=== PATIENT | female | born 1965 | race Hispanic/Latino ===

== ENCOUNTER 2018-08-30 20:59 | Emergency (ER) | payer MEDICARE ==
--- NOTE | 2018-08-30 21:15 | Emergency Department Report ---
Blank Doc - Documentation Documentation: 52 y o female presents to ed cc of right knee pain and arm pain after falling o [employer] while taking the thrash out no loc, groung level fall xr acc eval
[2018-08-30] MEDS ORDERED: LOMOTIL PO ONE (22:01)
[2018-08-30] MEDS ORDERED: TORADOL IM ONE (22:01)
[2018-08-30] MEDS ORDERED: ZOFRAN ODT PO ONE (22:01)
--- NOTE | 2018-08-30 22:03 | Emergency Department Report ---
HPI - General Chief Complaint: Fall Time Seen by Provider: 08/30/18 21:09 - HPI HPI: Patient is a 52-year-old female who comes to the emergency room complaining of falling while attempting to throw some trash in a dumpster. Patient is currently at [facility] being treated for her schizophrenia. She has abrasions and contusions to her right lower extremity and elbow. She is ambulatory and in no acute distress. She also reports some recent diarrhea. Medications include Effexor, Paxil, gabapentin, trazodone, Toradol and Prilosec. Patient states that movement makes her pain worse. Nothing has been noted to make it better. She has taken ibuprofen at [facility]. ED Past Medical Hx - Past Medical History Previous Medical History?: Yes Hx Renal Disease: Yes (Kidney Stones) Hx Headaches / Migraines: Yes Hx Asthma: Yes Hx COPD: Yes Additional medical history: Crohns, Sciatic, Fibromyalgia, chronic back pain - Surgical History Past Surgical History?: Yes Hx Cholecystectomy: Yes - Social History Smoking Status: Never Smoker - Medications Home Medications: Home Medications Medication Instructions Recorded Confirmed Last Taken Type Ondansetron [Zofran Odt] 4 mg PO Q8HR PRN #10 tab.rapdis 08/30/18 Unknown Rx predniSONE [Deltasone] 20 mg PO DAILY #5 tablet 08/30/18 Unknown Rx ED Review of Systems ROS: Stated complaint: FALL Other details as noted in HPI Comment: All other systems reviewed and negative Physical Exam - Physical Exam Vital Signs: Vital Signs 08/30/18 08/30/18 21:03 21:11 Temperature 99.2 F 99.2 F Pulse Rate 98 H 101 H Respiratory 18 18 Rate Blood Pressure 128/81 128/81 O2 Sat by Pulse 94 95 Oximetry Physical Exam: WDWN patient in NAD VS per RN flow sheet Alert and oriented to person, place and time. S1-S2. No S3 or S4. No systolic or diastolic murmur. No JVD. No pitting edema. Lungs clear to auscultation bilaterally anteriorly and posteriorly. Abdomen soft nontender bowel soundsx4 abrasion to RLE. full rom all extremities. Moves all extremities well. Mood and affect appropriate. ED Course Vital Signs 08/30/18 08/30/18 21:03 21:11 Temperature 99.2 F 99.2 F Pulse Rate 98 H 101 H Respiratory 18 18 Rate Blood Pressure 128/81 128/81 O2 Sat by Pulse 94 95 Oximetry ED Medical Decision Making - Radiology Data Radiology results: report reviewed, image reviewed - Medical Decision Making Vital Signs 08/30/18 08/30/18 08/30/18 21:03 21:11 22:17 Temperature 99.2 F 99.2 F Pulse Rate 98 H 101 H Respiratory 18 18 16 Rate Blood Pressure 128/81 128/81 Blood Pressure [Left] O2 Sat by Pulse 94 95 Oximetry 08/30/18 08/30/18 22:47 23:41 Temperature Pulse Rate 87 Respiratory 16 16 Rate Blood Pressure Blood Pressure 92/58 [Left] O2 Sat by Pulse 94 Oximetry Abrasions have been cleaned. X-rays noted to be normal. Vital signs are stable. Patient is being discharged back to [facility] with discharge planning care. Critical care attestation.: If time is entered above; I have spent that time in minutes in the direct care of this critically ill patient, excluding procedure time. ED Disposition Clinical Impression: Contusion, Diarrhea Disposition: TO HOME OR SELFCARE Is pt being admited?: No Does the pt Need Aspirin: No Condition: Stable Instructions: Contusion in Adults (ED) Additional Instructions: DIET TOLERATED MEDS ORDERED TODAY IN ER FOLLOW INSTRUCTIONS ON THE BOTTLE FOLLOW UP PCP WITHIN 48 HOURS TO ENSURE YOU ARE GETTING BETTER ACTIVITY TOLERATED MOTRIN OR TYLENOL FOR PAIN OR FEVER RETURN TO THE ER FOR WORSENING SYMPTOMS NOT RELIEVED BY YOUR MEDICATIONS. Prescriptions: predniSONE [Deltasone] 20 mg PO DAILY #5 tablet Ondansetron [Zofran Odt] 4 mg PO Q8HR PRN #10 tab.rapdis PRN Reason: Vomiting Referrals: TIM GRIFFINBRUCETON MILLS MD RICHARD [Referring] - 3-5 Days DIONI DUNN MD [Staff Physician] - 3-5 Days RIAZ AGUAYO MD [Staff Physician] - 3-5 Days KENYETTA FRANKLIN MD [Staff Physician] - 3-5 Days Time of Disposition: 23:00
--- NOTE | 2018-08-30 22:28 | XRay Report ---
PROCEDURE: XR KNEE 3V RT TECHNIQUE: Right knee radiographs, AP, lateral, and sunrise views. HISTORY: pain/swell COMPARISONS: None FINDINGS: Fracture (s) and/or Dislocation(s): None Alignment: Normal Joint space(s): Normal Soft tissues: There is prepatellar soft tissue swelling. There is no joint effusion. Bone mineralization: Normal Foreign bodies: None IMPRESSION: There is no acute bony abnormality. There is prepatellar soft tissue swelling. There is no joint effu treva. This document is electronically signed by Cliff Barboza MD., August 30 2018 11:26:10 PM ET
[2018-08-30 23:46] VITALS: BP 92/58
== END 2018-08-30 23:40 | disposition home or self-care (01) ==
LOC: ED 20:59
DX: S80.01XA Contusion of right knee, initial encounter (principal); J44.9 Chronic obstructive pulmonary disease, unspecified; G43.909 Migraine, unspecified, not intractable, without status migrainosus; M54.9 Dorsalgia, unspecified; G89.29 Other chronic pain; M79.7 Fibromyalgia; K50.90 Crohn's disease, unspecified, without complications; R19.7 Diarrhea, unspecified; Z90.49 Acquired absence of other specified parts of digestive tract; Z87.442 Personal history of urinary calculi; W17.89XA Other fall from one level to another, initial encounter; Y93.89 Activity, other specified; Y92.89 Other specified places as the place of occurrence of the external cause; Y99.8 Other external cause status
CPT/HCPCS: 73562; 96372; 99283; J1885; Q0162

== ENCOUNTER 2018-09-07 22:29 | Emergency (ER) | payer MEDICARE ==
[2018-09-07 22:55] VITALS: BP 119/81
--- NOTE | 2018-09-08 00:06 | XRay Report ---
PROCEDURE: XR KNEE 3V RT TECHNIQUE: Right knee radiographs, AP, lateral, and sunrise views. HISTORY: pain and swelling GLF 3 days ago COMPARISONS: None FINDINGS: Fracture (s) and/or Dislocation(s): None Alignment: Normal Joint space(s): Normal Soft tissues: There is prepatellar soft tissue swelling. There is no joint effusion. Bone mineralization: Normal Foreign bodies: None IMPRESSION: There is no fracture or dislocation. There is prepatellar soft tissue swelling. There is no joint effusion. This document is electronically signed by Cliff Barboza MD., September 08 2018 12:03:58 AM ET
--- NOTE | 2018-09-08 03:06 | Emergency Department Report ---
ED Lower Extremity HPI - General Chief Complaint: Fall Stated Complaint: RIGHT LEG BACK Source: patient Mode of arrival: Ambulatory Limitations: No Limitations - History of Present Illness Initial Comments: This is a 52-year-old female presents to the emergency room right knee pain. Patient states she fell while attempting to throw trash into the dumpster last Friday. She reports swelling and pain to anterior knee. Reports pain is worse with movement. States she is apply ice to area which has improved some of the swelling. She denies paresthesias, weakness, warmth to touch. MD Complaint: knee injury (right) Onset/Timin -: days(s) Injury: Knee: Right Type of Injury: unknown Place: street/outdoors Severity: mild Severity scale (0 -10): 3 Improves With: NSAID, cold therapy Worsens With: weight bearing, movement Context: fall Associated Symptoms: swelling, able to partially bear weight, ambulatory. denies: snap/pop sensation, numbness, tingling, unable to bear weight Treatments Prior to Arrival: cold therapy - Related Data Previous Rx's Medication Instructions Recorded Last Taken Type Ondansetron [Zofran Odt] 4 mg PO Q8HR PRN #10 tab.rapdis 08/30/18 Unknown Rx predniSONE [Deltasone] 20 mg PO DAILY #5 tablet 08/30/18 Unknown Rx Acetaminophen [8Hr Muscle 650 mg PO Q8H PRN #20 tablet.er 09/08/18 Unknown Rx Aches-Pain] Allergies Allergy/AdvReac Type Severity Reaction Status Date / Time No Known Allergies Allergy Verified 08/30/18 21:03 ED Review of Systems ROS: Stated complaint: RIGHT LEG BACK Other details as noted in HPI Constitutional: denies: chills, fever Respiratory: denies: cough, shortness of breath, wheezing Cardiovascular: denies: chest pain, palpitations Gastrointestinal: denies: abdominal pain, nausea, diarrhea Musculoskeletal: joint swelling (right knee), arthralgia (right knee). denies: back pain Skin: denies: rash, lesions Neurological: denies: headache, weakness, paresthesias Psychiatric: denies: anxiety, depression ED Past Medical Hx - Past Medical History Previous Medical History?: Yes Hx Renal Disease: Yes (Kidney Stones) Hx Headaches / Migraines: Yes Hx Asthma: Yes Hx COPD: Yes Additional medical history: Crohns, Sciatic, Fibromyalgia, chronic back pain - Surgical History Past Surgical History?: Yes Hx Cholecystectomy: Yes - Social History Smoking Status: Never Smoker Substance Use Type: None - Medications Home Medications: Home Medications Medication Instructions Recorded Confirmed Last Taken Type Ondansetron [Zofran Odt] 4 mg PO Q8HR PRN #10 tab.rapdis 08/30/18 Unknown Rx predniSONE [Deltasone] 20 mg PO DAILY #5 tablet 08/30/18 Unknown Rx Acetaminophen [8Hr Muscle 650 mg PO Q8H PRN #20 tablet.er 09/08/18 Unknown Rx Aches-Pain] ED Physical Exam - General Limitations: No Limitations General appearance: alert, in no apparent distress, obese - Respiratory Respiratory exam: Present: normal lung sounds bilaterally. Absent: respiratory distress - Cardiovascular Cardiovascular Exam: Present: regular rate, normal rhythm. Absent: systolic murmur, diastolic murmur, rubs, gallop - GI/Abdominal GI/Abdominal exam: Present: soft, normal bowel sounds - Expanded Lower Extremity Exam Right Knee exam: Present: full ROM (painful), tenderness (tenderness and swelling to lateral patella), swelling, full knee extension. Absent: abrasion, laceration, ecchymosis, crepidus, dislocation, erythema, effusion, pain w/ pronation/supination, posterior draw sign, pain/laxity with valgus, pain/laxity with varus Lower Leg exam: Present: normal inspection, full ROM Ankle exam: Present: normal inspection, full ROM Foot/Toe exam: Present: normal inspection, full ROM Neuro vascular tendon exam: Present: no vascular compromise Gait: Positive: observed and limited by pain - Neurological Exam Neurological exam: Present: alert, oriented X3, normal gait - Psychiatric Psychiatric exam: Present: normal affect, normal mood - Skin Skin exam: Present: warm, dry, intact, normal color. Absent: rash ED Course Vital Signs 09/07/18 09/07/18 22:32 22:52 Temperature 98.3 F 98.3 F Pulse Rate 92 H 92 H Respiratory 18 18 Rate Blood Pressure 119/81 119/81 O2 Sat by Pulse 96 96 Oximetry ED Lower Extremity MDM - Radiology Data Radiology results: report reviewed PROCEDURE: XR KNEE 3V RT TECHNIQUE: Right knee radiographs, AP, lateral, and sunrise views. HISTORY: pain and swelling GLF 3 days ago COMPARISONS: None FINDINGS: Fracture (s) and/or Dislocation(s): None Alignment: Normal Joint space(s): Normal Soft tissues: There is prepatellar soft tissue swelling. There is no joint effusion. Bone mineralization: Normal Foreign bodies: None IMPRESSION: There is no fracture or dislocation. There is prepatellar soft tissue swelling. There is no joint effusion. - Medical Decision Making Patient was examined by me. Vitals are normal and patient is in no acute distress. Obtained a x-ray of right knee. X-rays dictated by radiologist. There is prepatellar soft tissue swelling. There is no joint effusion. There is no change from the x-ray 8 days ago. Patient informed of results. Instructed to continue applying ice to areas to decrease swelling. Start Tylenol for pain. Plan discussed with patient to discharge home and treat outpatient. She agrees with ER plan. Patient discharged home in stable condition. Follow up with PCP in 2-3 days. Critical care attestation.: If time is entered above; I have spent that time in minutes in the direct care of this critically ill patient, excluding procedure time. ED Disposition Clinical Impression: Contusion Qualifiers: Encounter type: initial encounter Contusion area: knee Laterality: right Qualified Code(s): S80.01XA - Contusion of right knee, initial encounter Right knee pain Qualifiers: Chronicity: acute Qualified Code(s): M25.561 - Pain in right knee Disposition: DC- TO HOME OR SELFCARE Is pt being admited?: No Does the pt Need Aspirin: No Condition: Stable Instructions: Arthralgia (ED), Knee Pain (ED) Additional Instructions: Rest Use ice or heat on affected area for 20 minutes and off for 2 hours. Take pain medication every 8 hours as needed for pain. Follow up with Primary Care Provider in 2-3 days. Prescriptions: Acetaminophen [8Hr Muscle Aches-Pain] 650 mg PO Q8H PRN #20 tablet.er PRN Reason: Pain , Severe (7-10) [facility] [Primary Care Provider] - 3-5 Days [facility] [Outside] - 3-5 Days [facility] [Outside] - 3-5 Days [facility] [Provider Group] - 3-5 Days Forms: Work/School Release Form(ED) Time of Disposition: 04:02
== END 2018-09-08 04:20 | disposition home or self-care (01) ==
LOC: ED 22:29
DX: S80.01XA Contusion of right knee, initial encounter (principal); G43.909 Migraine, unspecified, not intractable, without status migrainosus; J44.9 Chronic obstructive pulmonary disease, unspecified; Z90.49 Acquired absence of other specified parts of digestive tract; G89.29 Other chronic pain; M54.9 Dorsalgia, unspecified; Z79.899 Other long term (current) drug therapy; W18.30XA Fall on same level, unspecified, initial encounter; Y93.89 Activity, other specified; Y92.89 Other specified places as the place of occurrence of the external cause; Y99.8 Other external cause status
CPT/HCPCS: 99283

== ENCOUNTER 2019-05-26 09:55 | Outpatient (CLI) | payer MEDICARE ==
[2019-05-26 10:49] LABS: BUN/Creatinine Ratio 13; Blood Urea Nitrogen 10 mg/dL (7-17); Calcium 9.1 mg/dL (8.4-10.2); Hemolysis Index 49
== END 2019-05-26 09:56 | disposition home or self-care (01) ==
LOC: LAB 09:55
DX: F31.64 Bipolar disorder, current episode mixed, severe, with psychotic features (principal)
CPT/HCPCS: 36415; 80048; 80178

== ENCOUNTER 2019-06-07 09:33 | Emergency (ER) | payer MEDICARE ==
[2019-06-07] MEDS ORDERED: METOCLOPRAMIDE 10 MG/2 ML INJ IV ONE (10:40)
[2019-06-07] MEDS ORDERED: diphenhydrAMINE 50 MG/ML VIAL IV ONE (10:40)
[2019-06-07] MEDS ORDERED: KETOROLAC 30 MG/1 ML INJ IV ONE (10:40)
[2019-06-07] MEDS ORDERED: SODIUM CHLORIDE 0.9% 1000 ML 1,000 ML IV ONE (10:40)
--- NOTE | 2019-06-07 11:28 | Emergency Department Report ---
ED Headache HPI - General Chief Complaint: Headache Stated Complaint: STOMACH PAINS, MIGRAINE Time Seen by Provider: 06/07/19 10:33 - History of Present Illness Initial Comments: Patient is a 53-year-old female presents emergency room with complaints of a migraine that began yesterday. She has associated nausea, vomiting, photophobia, sensitivity to noises. She states that she takes Topamax to prevent migraines but does not have an abortive therapy that she uses. She states that this headache feels similar to her previous breakthrough migraines. She denies any diarrhea, fever, dysuria, neck stiffness, vision changes, n umbness, weakness, loss of consciousness. She denies any recent travel. She denies any allergies to medications. She states that she went through menopause. Allergies/Adverse Reactions: Allergies No Known Allergies Allergy (Verified 08/30/18 21:03) Home Medications: Ambulatory Orders Ondansetron [Zofran Odt] 4 mg PO Q8HR PRN #10 tab.rapdis 08/30/18 predniSONE [Deltasone] 20 mg PO DAILY #5 tablet 08/30/18 Acetaminophen [8Hr Muscle Aches-Pain] 650 mg PO Q8H PRN #20 tablet.er 09/08/18 SUMAtriptan SUCCINATE [Imitrex] 25 mg PO PRN PRN #15 tablet 06/07/19 ED Review of Systems ROS: Stated complaint: STOMACH PAINS, MIGRAINE Other details as noted in HPI Comment: All other systems reviewed and negative ED Past Medical Hx - Past Medical History Previous Medical History?: Yes Hx Renal Disease: Yes (Kidney Stones) Hx Headaches / Migraines: Yes Hx Asthma: Yes Hx COPD: Yes Additional medical history: Crohns, Sciatic, Fibromyalgia, chronic back pain - Surgical History Past Surgical History?: Yes Hx Cholecystectomy: Yes - Social History Smoking Status: Never Smoker Substance Use Type: None - Medications Home Medications: Home Medications Medication Instructions Recorded Confirmed Last Taken Type Ondansetron [Zofran Odt] 4 mg PO Q8HR PRN #10 tab.rapdis 08/30/18 Unknown Rx predniSONE [Deltasone] 20 mg PO DAILY #5 tablet 08/30/18 Unknown Rx Acetaminophen [8Hr Muscle 650 mg PO Q8H PRN #20 tablet.er 09/08/18 Unknown Rx Aches-Pain] SUMAtriptan SUCCINATE [Imitrex] 25 mg PO PRN PRN #15 tablet 06/07/19 Unknown Rx ED Physical Exam - General Limitations: No Limitations General appearance: alert, in no apparent distress - Head Head exam: Present: atraumatic, normocephalic - Eye Eye exam: Present: normal appearance, PERRL, EOMI. Absent: scleral icterus, conjunctival injection, nystagmus, periorbital swelling, periorbital tenderness Pupils: Present: normal accommodation - ENT ENT exam: Present: mucous membranes moist - Neck Neck exam: Present: full ROM. Absent: meningismus - Respiratory Respiratory exam: Present: normal lung sounds bilaterally. Absent: respiratory distress, wheezes, rales, rhonchi, stridor, chest wall tenderness, accessory muscle use, decreased breath sounds, prolonged expiratory - Cardiovascular Cardiovascular Exam: Present: regular rate, normal rhythm, normal heart sounds. Absent: systolic murmur, diastolic murmur, rubs, gallop - Neurological Exam Neurological exam: Present: alert, oriented X3, CN II-XII intact, normal gait, other (normal finger to nose, normal heel to ramirez, 5/5 strength in the BUE/BLE, sensation intact throughout, no focal neuro deficit). Absent: motor sensory deficit - Psychiatric Psychiatric exam: Present: normal affect, normal mood - Skin Skin exam: Present: warm, dry, intact ED Course Vital Signs 06/07/19 06/07/19 10:15 12:04 Temperature 99.0 F 97.8 F Pulse Rate 92 H 79 Respiratory 16 Rate Blood Pressure 133/89 147/89 O2 Sat by Pulse 100 Oximetry ED Medical Decision Making - Medical Decision Making Patient is a 53-year-old female presents emergency room with complaints of a migraine that began yesterday. She has associated nausea, vomiting, photophobia, sensitivity to noises. She states that she takes Topamax to prevent migraines but does not have an abortive therapy that she uses. She states that this headache feels similar to her previous breakthrough migraines. She denies any diarrhea, fever, dysuria, neck stiffness, vision changes, numbness, weakness, loss of consciousness. She denies any recent travel. She denies any allergies to medications. She states that she went through menopause. VSS. On exam no meningeal signs, no neurological deficits. Patient given medications and symptoms completely resolved and patient was feeling much better. Patient denies any cardiac history. Patient given prescription for Imitrex to use for abortive therapy for breakthrough migraines. advised pt Please take medication as prescribed as needed. May take at the onset of symptoms and then repeat 2 hours later if headache has not improved. Continue to take your Topamax as prescribed by her primary care doctor. Follow-up with your primary care doctor for a reexamination. Return to the emergency room for any new or worsening symptoms. - Differential Diagnosis migraine, cluster ABREU, tension ABREU, sinusitis Critical care attestation.: If time is entered above; I have spent that time in minutes in the direct care of this critically ill patient, excluding procedure time. ED Disposition Clinical Impression: Migraine Qualifiers: Migraine type: unspecified Status migrainosus presence: without status migrainosus Intractability: not intractable Qualified Code(s): G43.909 - Migraine, unspecified, not intractable, without status migrainosus Disposition: TO HOME OR SELFCARE Is pt being admited?: No Does the pt Need Aspirin: No Condition: Stable Instructions: Migraine Headache (ED) Additional Instructions: Please take medication as prescribed as needed. May take at the onset of symptoms and then repeat 2 hours later if headache has not improved. Continue to take your Topamax as prescribed by her primary care doctor. Follow-up with your primary care doctor for a reexamination. Return to the emergency room for any new or worsening symptoms. Prescriptions: SUMAtriptan SUCCINATE [Imitrex] 25 mg PO PRN PRN #15 tablet PRN Reason: headache Referrals: PRIMARY CARE, [Primary Care Provider] - 2-3 Days Time of Disposition: 12:49 Print Language: GERMAN
[2019-06-07] MEDS ORDERED: dexAMETHasone 4 MG/ML VIAL IV ONE (11:52)
[2019-06-07] MEDS ORDERED: SUMAtriptan SUCCINATE 6 MG/0.5 ML INJ SUB-Q ONE (11:52)
[2019-06-07 12:06] VITALS: BP 147/89
== END 2019-06-07 13:05 | disposition home or self-care (01) ==
LOC: ED 09:33
DX: G43.909 Migraine, unspecified, not intractable, without status migrainosus (principal); R11.2 Nausea with vomiting, unspecified; J44.9 Chronic obstructive pulmonary disease, unspecified; M79.7 Fibromyalgia; G89.29 Other chronic pain; Z90.49 Acquired absence of other specified parts of digestive tract; Z79.899 Other long term (current) drug therapy; Z87.442 Personal history of urinary calculi
CPT/HCPCS: 96361; 96372; 96374; 96375; 99282; J1100; J1200; J1885; J2765; J7030; J3030

== ENCOUNTER 2019-06-08 17:39 | Emergency (ER) | payer MEDICARE ==
[2019-06-08 18:49] VITALS: BP 148/98
--- NOTE | 2019-06-08 18:52 | Emergency Department Report ---
ED Rash HPI - HPI Chief Complaint: Skin/Abscess/Foreign Body Stated Complaint: HEAD LICE Time Seen by Provider: 06/08/19 18:46 Duration: 2 Days Rash Symptoms: No Itching, No Facial Swelling, No Tongue/Oral Swelling, No Br eathing Difficulties, No Choking Sensation, No Wheezing/Dyspnea, No Peeling, No Blistering, No Fever, No Lightheaded, No Malaise, No Myalgias Severity: mild Other History: 53 y o pt from [facility] presents with head lice. denies itching or any other symptoms ED Review of Systems ROS: Stated complaint: HEAD LICE Other details as noted in HPI Comment: All other systems reviewed and negative ED Past Medical Hx - Past Medical History Previous Medical History?: Yes Hx Renal Disease: Yes (Kidney Stones) Hx Headaches / Migraines: Yes Hx Asthma: Yes Hx COPD: Yes Additional medical history: Crohns, Sciatic, Fibromyalgia, chronic back pain - Surgical History Past Surgical History?: Yes Hx Cholecystectomy: Yes - Social History Smoking Status: Never Smoker Substance Use Type: None - Medications Home Medications: Home Medications Medication Instructions Recorded Confirmed Last Taken Type Ondansetron [Zofran Odt] 4 mg PO Q8HR PRN #10 tab.rapdis 08/30/18 Unknown Rx predniSONE [Deltasone] 20 mg PO DAILY #5 tablet 08/30/18 Unknown Rx Acetaminophen [8Hr Muscle 650 mg PO Q8H PRN #20 tablet.er 09/08/18 Unknown Rx Aches-Pain] SUMAtriptan SUCCINATE [Imitrex] 25 mg PO PRN PRN #15 tablet 06/07/19 Unknown Rx Ivermectin (Nf) 3 mg PO DAILY #10 tablet 06/08/19 Unknown Rx Permethrin 5% [Acticin 5% CREAM] 1 applicatio TP ONCE #1 tube 06/08/19 Unknown Rx Rash Exam - Exam General: Vital signs noted. No distress. Alert and acting appropriately. HEENT: No Periorbital Edema, No Conjuctival Injection, No Chemosis, No Perioral Edema, No Tongue Edema, No Uvular Edema, No Compromised Airway, No Drooling Lungs: Yes Good Air Exchange (Normal Breath Sounds), No Wheezes, No Ronchi, No Stridor, No Cough, No Labored Respirations, No Retractions, No Use of Accessory Muscles, No Other Abnormal Lung Sounds Heart: Yes Regular, No Murmur Skin: Yes Other (head lice), No Urticarial Rash, No Maculopapular Rash, No Morbilliform rash, No Bulla(e), No Excoriations, No Weeping, No Tenderness, No Erythema, No Edema, No Encrustations Other: Positive: Abdomen Normal, Neurologic Normal, Musculoskeletal Normal Critical care attestation.: If time is entered above; I have spent that time in minutes in the direct care of this critically ill patient, excluding procedure time. ED Disposition Clinical Impression: Head lice infestation Disposition: - TO HOME OR SELFCARE Is pt being admited?: No Does the pt Need Aspirin: No Condition: Stable Additional Instructions: follow up with [facility] take medication as prescribed Prescriptions: Permethrin 5% [Acticin 5% CREAM] 1 applicatio TP ONCE #1 tube Ivermectin (Nf) 3 mg PO DAILY #10 tablet Referrals: [facility] [Outside] - 3-5 Days [facility] [Outside] - 3-5 Days Forms: Work/School Release Form(ED) Time of Disposition: 18:56
== END 2019-06-08 20:07 | disposition home or self-care (01) ==
LOC: ED 17:39
DX: B85.0 Pediculosis due to Pediculus humanus capitis (principal); J44.9 Chronic obstructive pulmonary disease, unspecified; G43.909 Migraine, unspecified, not intractable, without status migrainosus; Z90.49 Acquired absence of other specified parts of digestive tract; Z87.442 Personal history of urinary calculi; Z79.899 Other long term (current) drug therapy
CPT/HCPCS: 99282